=== PATIENT | female | born 1980 | race Caucasian/White ===

== ENCOUNTER 2017-01-08 17:04 | Emergency (ER) | payer MEDICAID, OTHER ==
[2017-01-08 17:04] VITALS: BMI 32.1
[2017-01-08 17:46] VITALS: BP 113/72; PULSE 84; RESP 18; TEMP 97.8; O2SAT 100
--- NOTE | 2017-01-08 18:16 | C.PDOC ---
History Of Present Illness 36 y/o female presents to the ED with complains of left upper toothache since this morning. Pt also notes some swelling to left upper cheek. Pt denies fever, chills, drooling, trismus, dysphagia, SOB, wheezing, or recent dental work. Pt in no acute distress at this time. Time Seen by Provider: 01/08/17 17:55 Chief Complaint (Nursing): Dental Pain History Per: Patient History/Exam Limitations: no limitations Onset/Duration Of Symptoms: Hrs Current Symptoms Are (Timing): Still Present Severity: Mild Quality: Positive for: "Pain" Recent travel outside of the [place]: No Past Medical History Reviewed: Historical Data, Nursing Documentation, Vital Signs Vital Signs: Last Vital Signs Temp 97.8 F 01/08/17 17:44 Pulse 84 01/08/17 17:44 Resp 18 01/08/17 17:44 BP 113/72 01/08/17 17:44 Pulse Ox 100 01/08/17 18:21 - [facility] Procedures CLOSURE SKIN & SUBCUTANEOUS NEC (10/11/14) Family History: States: Unknown Family Hx - Social History Hx Tobacco Use: No Hx Alcohol Use: No Hx Substance Use: No - Immunization History Hx Tetanus Toxoid Vaccination: No Hx Influenza Vaccination: No Hx Pneumococcal Vaccination: No Review Of Systems Except As Marked, All Systems Reviewed And Found Negative. Constitutional: Negative for: Fever, Chills ENT: Positive for: Other (left upper toothache with some swelling to left upper cheek; no drooling, no trismus) Physical Exam - Physical Exam Appears: Well, Non-toxic, No Acute Distress Skin: Warm, Dry, No Rash Head: Atraumatic, Normacephalic Eye(s): bilateral: Normal Inspection Ear(s): Bilateral: Normal Nose: Normal Oral Mucosa: Moist, No Drooling, No Trismus Tongue: Normal Appearing Lips: Normal Appearing Teeth: Caries, Other (left upper second molar with carious root) Gingiva: Erythema (mild), No Bleeding, No Abscess Throat: Normal, No Erythema, No Exudate, No Drooling, Other (uvula midline, no edema.) Neck: Normal, Normal ROM, Supple Respiratory: Normal Breath Sounds, No Stridor, No Wheezing Extremity: Normal ROM, No Pedal Edema Extremity: Bilateral: Atraumatic Neurological/Psych: Oriented x3, Normal Speech ED Course And Treatment O2 Sat by Pulse Oximetry: 100 (on room air) Pulse Ox Interpretation: Normal Progress Note: ON RE-EVAL, PT IS AFEBRILE, HEMODYNAMICALY STABLE. ONN-TOXIC. TOLERATE PO WELL IN ED. PULSEOX 100% ra. ENT: EXAM C/W LEFT UPPER GINGIVITIS, NO EVIDENCE OF TOOHH ABSCESS. UVULA MIDLINE, NO EDEMA. LUNGS: CTA B/L, BS EQUAL B/L. POS (-). ABX GIVEN. PT ADVISED AND REF. TO F/U WITH DENTIST IN 2- 3 DAYS FOR RE-EAVL. RETURN IF ANY NEW CHANGES. Disposition Counseled Patient/Family Regarding: Diagnosis, Need For Followup, Rx Given - Disposition Referrals: [facility] [Provider Group] [facility] [Provider Group] Disposition: HOME/ ROUTINE Disposition Time: 18:32 Condition: STABLE Additional Instructions: WARM SALTY WATER TOOTH BATH 2-3 TIMES DAILY TAKE MEDICATION PRESCRIBED FOLLOW UP WITH DENTIST IN 2-3 DAYS FOR RE-EVALUATION AND TOOTH REMOVAL. RETURN TO ED IF ANY WORSENING OR NEW CHANGES. 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 - Scribe Statement The provider has reviewed the documentation as recorded by the Jeane Baxter All medical record entries made by the Scribe were at my direction and personally dictated by me. I have reviewed the chart and agree that the record accurately reflects my personal performance of the history, physical exam, medical decision making, and the department course for this patient. I have also personally directed, reviewed, and agree with the discharge instructions and disposition.
== END 2017-01-08 18:39 | disposition home or self-care (01) ==
LOC: MERGE 17:04 → C.ER 17:04
DX: K02.9 Dental caries, unspecified (principal); K05.10 Chronic gingivitis, plaque induced

== ENCOUNTER 2017-06-06 21:38 | Emergency (ER) | payer OTHER ==
[2017-06-06 21:39] VITALS: BMI 32.1
[2017-06-06 23:11] LABS: BASO # 0.1 K/uL (0.0-0.2); BASO % 1.2 % (0.0-2.0); EOS # 0.2 K/uL (0.0-0.7); EOS % 2.8 % (0.0-4.0); HEMATOCRIT 37.2 % (34.0-47.0); LYMPH # 2.4 K/uL (1.0-4.3); LYMPH % 39.1 % (20.0-40.0); MEAN CELL VOLUME 76.1 fL (81.0-99.0); MEAN CORPUSCULAR HEMOGLOBIN 25.8 pg (27.0-31.0); MEAN CORPUSCULAR HGB CONC 33.9 g/dL (33.0-37.0); MEAN PLATELET VOLUME 7.4 fL (7.2-11.7); MONO # 0.4 K/uL (0.0-0.8); MONO % 7.2 % (0.0-10.0); RED CELL DISTRIBUTION WIDTH 15.4 % (11.5-14.5); WHITE BLOOD COUNT 6.1 K/uL (4.8-10.8)
[2017-06-06 23:14] LABS: URINE BILIRUBIN NEGATIVE (NEGATIVE); URINE BLOOD NEGATIVE (NEGATIVE); URINE COLOR Colorless (YELLOW); URINE GLUCOSE (UA) NORMAL (Normal); URINE KETONE NEGATIVE (NEGATIVE); URINE LEUKOCYTE ESTERASE NEG Leu/uL (Negative); URINE PROTEIN NEGATIVE (NEGATIVE); URINE UROBILINOGEN NORMAL mg/dL (0.2-1.0)
[2017-06-06 23:20] LABS: CHLORIDE 104 mmol/L (98-107); SODIUM 140 mmol/L (132-148)
[2017-06-06 23:21] LABS: POTASSIUM 3.6 mmol/L (3.6-5.2)
[2017-06-06 23:23] LABS: ALB/GLOB RATIO 1.3 (1.0-2.1); ALKALINE PHOSPHATASE 66 U/L (38-126); ALT/SGPT 34 U/L (9-52); AST/SGOT 27 U/L (14-36); BILIRUBIN,TOTAL 0.7 mg/dL (0.2-1.3); BLOOD UREA NITROGEN 12 mg/dL (7-17); CARBON DIOXIDE 22 mmol/L (22-30); GFR AFRICAN-AMERICAN > 60; TOTAL PROTEIN 7.5 g/dL (6.3-8.3)
[2017-06-06 23:24] LABS: CALCIUM 9.1 mg/dl (8.6-10.4); GLUCOSE,RANDOM 83 mg/dL (65-105)
--- NOTE | 2017-06-06 23:30 | C.PDOC ---
History Of Present Illness 36 year old female who presents to the ER with a complaint of vaginal discharge that began today. Patient states her LMP was 6/24, reports she is . Denies pain, dysuria, or fever. Time Seen by Provider: 06/06/17 22:26 Chief Complaint (Nursing): Female Genitourinary History Per: Patient History/Exam Limitations: no limitations Onset/Duration Of Symptoms: Hrs Current Symptoms Are (Timing): Still Present Associated Symptoms: Other (Vaginal discharge). denies: Fever, Chills, Urinary Symptoms Alleviating Factors: None Recent travel outside of the [place]: No Abnormal Vaginal Bleeding: No Past Medical History Reviewed: Historical Data, Nursing Documentation, Vital Signs Vital Signs: Last Vital Signs Temp 97.9 F 06/07/17 00:07 Pulse 85 06/07/17 00:07 Resp 17 06/07/17 00:07 BP 111/73 06/07/17 00:07 Pulse Ox 97 06/07/17 00:07 - Medical History PMH: No Chronic Diseases Surgical History: No Surg Hx - [facility] Procedures CLOSURE SKIN & SUBCUTANEOUS NEC (10/11/14) Family History: States: Unknown Family Hx - Social History Hx Tobacco Use: No Hx Alcohol Use: No Hx Substance Use: No - Immunization History Hx Tetanus Toxoid Vaccination: No Hx Influenza Vaccination: No Hx Pneumococcal Vaccination: No Review Of Systems Constitutional: Negative for: Fever, Chills Gastrointestinal: Negative for: Nausea, Vomiting Genitourinary: Positive for: Vaginal Discharge. Negative for: Dysuria, Incontinence, Hematuria Physical Exam - Physical Exam Appears: Non-toxic, No Acute Distress Skin: Normal Color, Warm, Dry Head: Atraumatic, Normacephalic Oral Mucosa: Moist Chest: Symmetrical, No Tenderness Cardiovascular: Rhythm Regular, No Murmur Respiratory: Normal Breath Sounds, No Rales, No Rhonchi, No Wheezing Gastrointestinal/Abdominal: Soft, No Tenderness Pelvic: Normal External Exam, No Vaginal Bleeding, No Vaginal Discharge, No Cervical Motion Tenderness, No Adnexal Tenderness Neurological/Psych: Oriented x3, Normal Speech, Normal Cognition ED Course And Treatment - Laboratory Results Result Diagrams: 06/06/17 23:08 06/06/17 23:08 Progress Note: Blood work and US ordered. Disposition Counseled Patient/Family Regarding: Diagnosis - Disposition Referrals: [facility] [Outside] Disposition: HOME/ ROUTINE Disposition Time: 00:31 Condition: STABLE Instructions: (ED) Forms: [employer] (Samoan) - POA Present On Arrival: None - Clinical Impression Clinical Impression: Intrauterine normal - Scribe Statement The provider has reviewed the documentation as recorded by the Scribe Alex Stinson All medical record entries made by the Scribe were at my direction and personally dictated by me. I have reviewed the chart and agree that the record accurately reflects my personal performance of the history, physical exam, medical decision making, and the department course for this patient. I have also personally directed, reviewed, and agree with the discharge instructions and disposition.
--- NOTE | 2017-06-06 23:50 | US ---
EXAM: US CLINICAL HISTORY: 36 years old, female; Signs and symptoms; Lmp or gestational age (in weeks): 8wks; Other: Possible vaginal bleed; TECHNIQUE: Real-time transabdominal and transvaginal obstetrical ultrasound of the maternal pelvis and a first trimester with image documentation. Transvaginal imaging was used for better evaluation of the fetus and adnexa. COMPARISON: No relevant prior studies available. FINDINGS: Retroverted uterus. There is a well formed gestational sac within the endometrial canal. A pole and yolk sac are seen within the gestational sac. [place] rump length measurement correlates with an estimated gestational age of 8 weeks 4 days. cardiac activity is seen with a heart rate of 163 beats per minute. The ovaries are unremarkable in appearance. Bilateral flow. IMPRESSION: Single live IUP as above. Followup imaging recommended.
[2017-06-07 00:43] VITALS: BP 101/67; PULSE 84; RESP 18; TEMP 98; O2SAT 98
== END 2017-06-07 00:43 | disposition home or self-care (01) ==
LOC: C.ER 21:38
DX: O26.891 Other specified pregnancy related conditions, first trimester (principal); Z3A.08 8 weeks gestation of pregnancy

== ENCOUNTER 2017-06-14 14:51 | Emergency (ER) | payer OTHER ==
[2017-06-14 14:51] VITALS: BMI 32.1
[2017-06-14 15:01] VITALS: BP 118/78; RESP 18; TEMP 97.8
--- NOTE | 2017-06-14 15:27 | C.PDOC ---
History Of Present Illness 36 yo female, reports 9 wks , come in for evaluation of Right earache intermittent since today AM. Pt also report, noted one time brownish vaginal discharge early today. Pt admits, was seen here in ED on 06/06/17 due to same complaints of vaginal bloody discharges. Otherwise, pt denies recent illness, fever, chills, headache, dizziness, vertigo, ear discharge, sore throat, cough, CP, SOB, abd. pain, N/V, back pain, UTI sx. Pt admits, takes vitamins, dneies OB F/U "I have scheduled appointment in 2 weeks". Time Seen by Provider: 06/14/17 15:09 Chief Complaint (Nursing): ENT Problem History Per: Patient Past Medical History Reviewed: Historical Data, Nursing Documentation, Vital Signs Vital Signs: Last Vital Signs Temp 97.8 F 06/14/17 14:57 Pulse 82 06/14/17 16:58 Resp 18 06/14/17 16:58 BP 118/78 06/14/17 14:57 Pulse Ox 99 06/14/17 16:58 - Medical History PMH: No Chronic Diseases Surgical History: No Surg Hx - [facility] Procedures CLOSURE SKIN & SUBCUTANEOUS NEC (10/11/14) Family History: States: No Known Family Hx - Social History Hx Tobacco Use: No Hx Alcohol Use: No Hx Substance Use: No - Immunization History Hx Tetanus Toxoid Vaccination: No Hx Influenza Vaccination: No Hx Pneumococcal Vaccination: No Review Of Systems Except As Marked, All Systems Reviewed And Found Negative. Constitutional: Negative for: Fever, Chills Eyes: Negative for: Vision Change ENT: Positive for: Ear Pain. Negative for: Ear Discharge, Nose Discharge, Nose Congestion, Throat Pain, Throat Swelling Cardiovascular: Negative for: Chest Pain, Palpitations, Edema, Light Headedness Respiratory: Negative for: Cough, Shortness of Breath, Wheezing Gastrointestinal: Negative for: Nausea, Vomiting, Abdominal Pain, Diarrhea Genitourinary: Positive for: Vaginal Discharge. Negative for: Dysuria, Frequency Musculoskeletal: Negative for: Neck Pain, Back Pain Skin: Negative for: Rash Neurological: Negative for: Weakness, Numbness, Altered Mental Status, Headache , Dizziness Physical Exam - Physical Exam Appears: Well, Non-toxic, No Acute Distress Skin: Normal Color, Warm, Dry, No Rash Eye(s): bilateral: PERRL Ear(s): Bilateral: TM Obscured By Wax (partially, TMs- normal exam B/L.), Other (no ear canal edema or discharges B/L, no mastroid tenderness B/L.) Nose: No Flaring, No Discharge Oral Mucosa: Moist, No Drooling Tongue: Normal Appearing Lips: Normal Appearing Throat: No Erythema, No Exudate, No Drooling Neck: Supple Cardiovascular: Rhythm Regular Respiratory: No Decreased Breath Sounds, No Accessory Muscle Use, No Stridor, No Wheezing Gastrointestinal/Abdominal: Soft, No Tenderness, No Distention, No Guarding Back: No CVA Tenderness Extremity: No Pedal Edema, No Swelling Neurological/Psych: Oriented x3, Normal Speech ED Course And Treatment O2 Sat by Pulse Oximetry: 100 Pulse Ox Interpretation: Normal Progress Note: Blood work and US results review from 06/06/17. beta quant from 06/06/17- [id number]. Blood type: B positive, Ab negative. US results: Retroverted uterus. There is a well formed gestational sac within the. endometrial canal. A pole and yolk sac are seen within the gestational sac. [place] rump length measurement correlates with an estimated gestational age of 8 weeks 4 days. cardiac activity is seen with a heart rate of 163 beats per minute. The ovaries are unremarkable in appearance. Bilateral flow. On re- evaluation, pt is afebrile, hemodynamicaly stable. Non-toxic, tolerate Po well in ED. PulseOx 100% RA. ENT: exam c/w B/L ear cerumen impaction, partial, no evidence of otitis externa or media, no mastoid tenderness B/L. neck: Supple. Lumgs: CTA B/L, BS equal B/L. Abd: benign. NO peripheral edema. Beta quant for today [id number]. Pt has cinical findings c/w cerumen impaction, intermittent vaginal spotting r/o threatened miscarriage. Pt was advisewd to f/u with OB in 1-2 days for re-eval. return to ED if any worsening or new changes. Disposition Counseled Patient/Family Regarding: Studies Performed, Diagnosis, Need For Followup, Rx Given - Disposition [facility]errals[facility]] Michael Mccabe MD [Staff Provider] - Disposition: HOME/ ROUTINE Disposition Time: 16:42 Condition: STABLE Additional Instructions: Encourage fluids rest, avoid strenuous work, physical activity for 1 week Follow up with OB and ENT in 1-2 days for re-evaluation. return to ED if any new changes. Instructions: Threatened Miscarriage (ED), Cerumen Impaction (ED) Forms: [employer] (Greek) - Clinical Impression Clinical Impression: Excess ear wax, Threatened
[2017-06-14 16:25] LABS: URINE BACTERIA RARE (<OCC); URINE BILIRUBIN NEGATIVE (NEGATIVE); URINE BLOOD NEGATIVE (NEGATIVE); URINE COLOR Straw (YELLOW); URINE GLUCOSE (UA) NORMAL (Normal); URINE KETONE NEGATIVE (NEGATIVE); URINE LEUKOCYTE ESTERASE NEG Leu/uL (Negative); URINE PROTEIN NEGATIVE (NEGATIVE); URINE UROBILINOGEN NORMAL mg/dL (0.2-1.0)
[2017-06-14 16:58] VITALS: PULSE 82
[2017-06-14 22:04] VITALS: O2SAT 100
== END 2017-06-14 16:58 | disposition home or self-care (01) ==
LOC: C.ER 14:51
DX: H61.23 Impacted cerumen, bilateral (principal); O20.0 Threatened abortion; Z3A.08 8 weeks gestation of pregnancy

== ENCOUNTER 2017-11-08 18:13 | Emergency (ER) | payer OTHER ==
[2017-11-08 18:13] VITALS: BMI 32.1
[2017-11-08 18:24] VITALS: BP 123/81; PULSE 90; RESP 16; TEMP 97.9; O2SAT 98
--- NOTE | 2017-11-08 18:26 | C.PDOC ---
History Of Present Illness 37 y/o female, currently 7 months , presents complaining of dental pain to a right lower premolar tooth for 2 days. Patient has an appointment with dentist, but they dont want to see her without written consent from patients OB. Not taking any medications for pain relief. Denies associated fever, chills , or facial swelling. PMD: Non-CPH Provider Time Seen by Provider: 11/08/17 18:17 Chief Complaint (Nursing): Dental Pain History Per: Patient History/Exam Limitations: no limitations Onset/Duration Of Symptoms: Days (x2) Current Symptoms Are (Timing): Still Present Quality: Positive for: Aching Recent travel outside of the [place]: No Past Medical History Reviewed: Historical Data, Nursing Documentation, Vital Signs Vital Signs: Last Vital Signs Temp 97.9 F 11/08/17 18:19 Pulse 90 11/08/17 18:19 Resp 16 11/08/17 18:19 BP 123/81 11/08/17 18:19 Pulse Ox 98 11/08/17 18:38 - Medical History PMH: No Chronic Diseases Surgical History: (x3) - [facility] Procedures CLOSURE SKIN & SUBCUTANEOUS NEC (10/11/14) Family History: States: Unknown Family Hx - Social History Hx Tobacco Use: No Hx Alcohol Use: No Hx Substance Use: No - Immunization History Hx Tetanus Toxoid Vaccination: No Hx Influenza Vaccination: No Hx Pneumococcal Vaccination: No Review Of Systems Except As Marked, All Systems Reviewed And Found Negative. Constitutional: Negative for: Fever, Chills ENT: Positive for: Other (dental pain). Negative for: Mouth Swelling Physical Exam - Physical Exam Appears: Non-toxic, No Acute Distress Skin: Normal Color, Warm, Dry Head: Atraumatic, Normacephalic Eye(s): bilateral: Normal Inspection, PERRL, EOMI Ear(s): Bilateral: Normal Nose: Normal Oral Mucosa: Moist Tongue: Normal Appearing Lips: Normal Appearing Teeth: Normal Dentition, Tender To Palpation (at right premolar tooth), No Other (facial swelling, abscess formation) Gingiva: Normal Appearing Throat: Normal Neck: Normal ROM, Supple Chest: Symmetrical Respiratory: No Accessory Muscle Use ED Course And Treatment O2 Sat by Pulse Oximetry: 98 (RA) Pulse Ox Interpretation: Normal Progress Note: Patient is medically stable. Advised to follow up with dentist. Referrals to other dentists provided. Treated with tylenol 650 mg PO Reassessment Condition: Improved Medical Decision Making Medical Decision Making: Initial Impression: Toothache Time: 18:25 Initial Plan --Tylenol given in ER Disposition Counseled Patient/Family Regarding: Diagnosis, Need For Followup - Disposition [facility]errals: [facility]Outside[facility] Disposition: HOME/ ROUTINE Disposition Time: 18:35 Condition: IMPROVED Additional Instructions: Tylenol as needed for pain Follow up with your dentist or dental clinic from list provided Instructions: Toothache (ED) Forms: [employer] (Mozambican) - POA Present On Arrival: None - Clinical Impression Clinical Impression: Toothache - 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 - Scribe Statement The provider has reviewed the documentation as recorded by the Scribe (Paige Jerry) All medical record entries made by the Scribe were at my direction and personally dictated by me. I have reviewed the chart and agree that the record accurately reflects my personal performance of the history, physical exam, medical decision making, and the department course for this patient. I have also personally directed, reviewed, and agree with the discharge instructions and disposition.
== END 2017-11-08 18:56 | disposition home or self-care (01) ==
LOC: C.ER 18:13
DX: K08.89 Other specified disorders of teeth and supporting structures (principal)

== ENCOUNTER 2018-01-03 18:50 | Emergency (ER) | payer OTHER ==
[2018-01-03 18:50] VITALS: BMI 32.1
--- NOTE | 2018-01-03 19:53 | C.PDOC ---
History Of Present Illness 37 year old female presents to the ED status post on 12/30 c/o abdominal discomfort and pulling on the incision site, patient states her pain is 4/10 discomfort. Patient denies fever, chills, nausea, vomit, diarrhea. Time Seen by Provider: 01/03/18 18:55 Chief Complaint (Nursing): Wound Check History Per: Patient History/Exam Limitations: no limitations Onset/Duration Of Symptoms: Days Ago Current Symptoms Are (Timing): Still Present Location Of Injury: Anterior: Abdomen Quality Of Symptoms: Painful Severity: Mild Pain Scale Rating Of: 2 Recent travel outside of the [place]: No Additional History Per: Patient Past Medical History Reviewed: Historical Data, Nursing Documentation, Vital Signs Vital Signs: Last Vital Signs Temp 97.9 F 01/03/18 18:54 Pulse 92 H 01/03/18 18:54 Resp 18 01/03/18 18:54 BP 105/73 01/03/18 18:54 Pulse Ox 100 01/03/18 20:01 - Medical History PMH: No Chronic Diseases Surgical History: (x3) - [facility] Procedures CLOSURE SKIN & SUBCUTANEOUS NEC (10/11/14) Family History: States: Unknown Family Hx - Social History Hx Tobacco Use: No Hx Alcohol Use: No Hx Substance Use: No - Immunization History Hx Tetanus Toxoid Vaccination: No Hx Influenza Vaccination: No Hx Pneumococcal Vaccination: No Review Of Systems Constitutional: Negative for: Fever, Chills Gastrointestinal: Positive for: Abdominal Pain. Negative for: Nausea, Vomiting , Diarrhea Genitourinary: Negative for: Dysuria Skin: Negative for: Rash Psych: Negative for: Anxiety Physical Exam - Physical Exam Appears: Non-toxic, No Acute Distress Skin: Warm, Dry Oral Mucosa: Moist Chest: Symmetrical Cardiovascular: Rhythm Regular Respiratory: No Rales, No Rhonchi, No Wheezing Gastrointestinal/Abdominal: Bowel Sounds (active), Soft, No Tenderness, No Guarding, No Rebound, Other (incision yanelis clean and dry. Jackson in place, no exudates seen. Mild alfredo-incisional area discomfort) Extremity: Normal ROM Neurological/Psych: Oriented x3 Gait: Steady ED Course And Treatment O2 Sat by Pulse Oximetry: 100 (ON RA) Pulse Ox Interpretation: Normal Progress Note: Plan: - Motrin 800 mg PO Reevaluation Time: 20:21 Reassessment Condition: Improved Disposition Counseled Patient/Family Regarding: Studies Performed, Diagnosis, Need For Followup - Disposition Referrals: Xin Figueroa MD [Medical Doctor] - Disposition: HOME/ ROUTINE Disposition Time: 19:53 Condition: FAIR Additional Instructions: Please return if symptoms recur. Instructions: Surgical Wound (DC) Forms: [employer] (Hungarian) - Clinical Impression Clinical Impression: Visit for wound check - Scribe Statement The provider has reviewed the documentation as recorded by the Scribe Quique Rodriguez All medical record entries made by the Scribe were at my direction and personally dictated by me. I have reviewed the chart and agree that the record accurately reflects my personal performance of the history, physical exam, medical decision making, and the department course for this patient. I have also personally directed, reviewed, and agree with the discharge instructions and disposition.
[2018-01-03 20:34] VITALS: BP 106/56; PULSE 86; RESP 20; TEMP 98; O2SAT 98
== END 2018-01-03 20:33 | disposition home or self-care (01) ==
LOC: C.ER 18:50
DX: Z51.89 Encounter for other specified aftercare (principal)